=== PATIENT | male | born 1940 ===

== ENCOUNTER → 2023-05-05 06:31 | Day surgery (SDC) | payer MEDICARE, SELFPAY | LOC: GI 06:31 | PROVIDERS: ATTENDING PHYSICIAN Internal Medicine Gastroenterology | DX: Z12.11 Encounter for screening for malignant neoplasm of colon (principal); N40.2 Nodular prostate without lower urinary tract symptoms; K57.30 Diverticulosis of large intestine without perforation or abscess without bleeding; K62.89 Other specified diseases of anus and rectum; Z86.010 Personal history of colon polyps | CPT/HCPCS: 45380; 88305 ==

== ENCOUNTER → 2023-08-05 18:25 | Outpatient (REF) | payer MEDICARE, SELFPAY ==
[2023-08-05 19:19] LABS: Urine Albumin Negative (Neg - Trace); Urine Bilirubin Negative (Negative); Urine Character Clear (Clear); Urine Color Yellow; Urine Glucose Negative (Negative); Urine Ketone Negative (Negative); Urine Leukocyte Trace (Negative); Urine Nitrite Negative (Negative); Urine Occult Blood Negative (Negative); Urine Specific Gravity 1.015 (<1.030); Urine Urobilinogen Negative (Neg - 1+)
[2023-08-05 19:24] LABS: Urine Bacteria Few (Negative); Urine Squamous Cell 0-2 /LPF (Few)
== END ==
LOC: CLAB 18:25
PROVIDERS: ATTENDING PHYSICIAN Specialist
DX: R31.9 Hematuria, unspecified (principal)
CPT/HCPCS: 81003; 81015; 87086

== ENCOUNTER 2023-08-23 17:43 | Emergency (ER) | payer MEDICARE, SELFPAY ==
[2023-08-23 17:48] VITALS: BP 105/63
[2023-08-23 18:01] VITALS: BMI 27.7
[2023-08-23 18:10] LABS: % Basophils 0.3 % (0-2); % Eosinophils 0.8 % (0-6); % Immature Granulocytes 0.6 % (0-0.5); % Lymphocytes 24.8 % (20.5-51.1); % Monocytes 8.2 % (1.7-9.3); % Neutrophils 65.3 % (42.2-75.2); Absolute Eosinophils 0.1 10^3/uL (0-0.7); Absolute Lymphocytes 1.5 10^3/uL (1.2-3.4); Absolute Monocytes 0.5 10^3/uL (0.1-0.6); Absolute Neutrophils 4.1 10^3/uL (1.4-6.5); Hematocrit 40.4 % (39.0-52.0); Mean Corp Hgb Conc. 34.7 g/dL (33.0-37.0); Mean Corpuscular Hgb 33.9 pg (27.0-31.0); Mean Corpuscular Volume 97.8 fL (80.0-94.0); Mean Platelet Volume 10.8 fL (7.4-10.4); Nucleated Red Blood Cells % 0 % (-); Platelet Count 160 10^3/uL (130-400); Red Blood Cell Count 4.13 10^6/uL (4.70-6.10); Red Cell Dist. Width 12.4 % (11.5-14.5); White Blood Cell Count 6.2 10^3/uL (4.8-10.8)
[2023-08-23 18:24] LABS: ALT (SGPT) 27 U/L (0-50); AST (SGOT) 25 U/L (17-59); Albumin 4.1 g/dl (3.5-5.0); Alkaline Phosphatase 48 U/L (38-126); Blood Urea Nitrogen 25 mg/dl (9-20); Calcium 9.5 mg/dl (8.4-10.2); Carbon Dioxide 28 mmol/L (22-30); Chloride 105 mmol/L (98-107); Estimated Creatinine Clearance 54 ml/min; Glucose 133 mg/dl (70-99); Potassium 4.4 mmol/L (3.5-5.1); Sodium 141 mmol/L (135-145); Total Bilirubin 0.5 mg/dl (0.2-1.3); Total Protein 6.5 g/dl (6.3-8.2); eGFR > 60.00
[2023-08-23 19:00] VITALS: BP 118/68
[2023-08-23 19:19] VITALS: BP 120/76
[2023-08-23 19:21] VITALS: BP 131/73
--- NOTE | 2023-08-23 19:35 | ED.GENMED ---
History of Present Illness
General
Chief Complaint: Fainting/Passed Out
Source: patient
Exam Limitations: none
Time Seen by Provider: 08/23/23 18:43
Nursing documentation reviewed up to this point in time: agreed with
Travel History
Have you had any contact with someone who has COVID-19?: No
Do you have any symptoms of coronavirus? Fever > 100 degrees, chills, cough, shortness of breath, sore throat, loss of taste or smell, muscle aches, or headache?: No
History of Present Illness
History of Present Illness:
pt is a 83 y/o M
with h/o HLD
no cardiac issues
has had syncope episodes a few times in his life
has h/o BPH and just took first dose of flomax this morning
he says he weighs himself daily and normally he is between 184 and 185 and today he was 183. He believes that he is dehydrated. Patient says the last couple days he has been doing some work in his yard and he does not think he has been staying up
with his fluids. This morning he took his first dose of Flomax did not increase his water intake. This afternoon he was feeling fine and was out to lunch and had 2 glasses of wine and some snacks and while seated at the table he suddenly passed
out witnessed by family and friends. Patient said he had no warning before he passed out. Patient 'I just fell asleep'. Patient said he woke up to people trying to arouse him. He never had any shaking episodes. Patient feels otherwise well now
other than feeling a little bit dehydrated. He had no preceding chest pain, shortness of breath, abdominal pain, vomiting, headache, dizziness. 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
Past History
Past History
ED Past Medical History: Hypercholesterolemia and Other
ED Past Surgical History: Other (hernia)
Social History
Tobacco: Non-smoker
Phy Exam
Physical Exam
Physical Exam:
GENERAL: Alert , in no apparent distress
EYE: pupils equal and reactive
NECK: Supple
ENT: o/p clr, mmm.
CARDIAC: Regular rate and rhythm . No edema, no murmur
LUNGS: Clear breath sounds bilaterally, no acute respiratory distress, no wheezes/rales/rhonchi
ABDOMEN: Soft, without focal tenderness, no r/g, no cvat, normal bowel sounds
NEUROLOGICAL: Alert and oriented, no focal neuro deficits
SKIN: Warm and dry, skin intact.
MUSCULOSKELETAL: No edema, well perfused. neg matt's sign
PSYCH: Normal and appropriate interaction.
Course
Orders/Labs/Results
Orders:
Orders
08/23/23 17:47
Electrocardiogram (*1) Urgent
Reason for Study: Syncope
08/23/23 17:48
EKG- Treatment ONCE
08/23/23 18:04
CBC/With Diff [Complete Blood Count/With Diff] Urgent
Comprehensive Metabolic Panel Urgent
08/23/23 18:56
Orthostatic VS- Treatment ONCE
08/23/23 19:30
0.9% Sodium Chloride 1000 ml [Nss] 1,000 ml IV BOLUS
Abnormal Lab Results
08/23/23
18:04
RBC 4.13 L 10^6/uL
(4.70-6.10)
MCV 97.8 H fL
(80.0-94.0)
MCH 33.9 H pg
(27.0-31.0)
MPV 10.8 H fL
(7.4-10.4)
Immature Gran % 0.6 H %
(0-0.5)
BUN 25 H mg/dl
(9-20)
Glucose 133 H mg/dl
(70-99)
08/23/23 18:04
08/23/23 18:04
Vital Signs
Initial and Last Documented VS:
Initial Vital Signs
Temp Pulse Resp BP Pulse Ox
98 F 60 18 105/63 95
08/23/23 17:48 08/23/23 17:48 08/23/23 17:48 08/23/23 17:48 08/23/23 17:48
Last Documented Vital Signs
Temp Pulse Resp BP Pulse Ox
98 F 65 15 121/70 96
08/23/23 17:48 08/23/23 20:15 08/23/23 20:15 08/23/23 20:00 08/23/23 20:15
MDM/Problems Addressed
Differential Diagnosis Includes:
syncope, volume depletion, dehydration, meidcation side effect
MDM/Problems Addressed:
83-year-old male with a history of hyperlipidemia and BPH recently started Flomax today because of BPH symptoms and urinary urgency at night. He took his first dose today and thinks he was already volume depleted and then at lunch had wine and some
food and ended up passing out while he was seated. Patient says he had no warning and woke up to people nudging him. Patient says it was a brief episode and there was no shaking involved. He feels otherwise well other than feeling a little
dehydrated. He said he is syncopized a few times this way in the past but had never been on Flomax before. On exam the patient looks well, he has negative orthostatic vital signs which were checked by me, no symptoms with standing, has been normal
sinus on the heart monitor with a normal EKG and no cardiac history, no murmur. He did look a little bit dehydrated with dry mucous membranes. He was given a liter of fluid and reassessed and feels much better. He is well enough to go home and
would like to be discharged. He is going to hold on the Flomax until talking to his urologist. He was offered observation admission and declined
*Critical Care Note
Total Time (30-74mins, 75-104mins- exclusive of procedures): Not Applicable
ED Attending Note
-
Portions of this chart may have been created with voice recognition software.� Occasional wrong word or��sound alike� substitutions may have occurred due to the inherent limitations of voice recognition software.
Discharge Plan
Departure
Referrals:
Corona Akers MD [Family Provider] -
Interventions
Interventions:
*General Assessment Last Done: 08/23/23 18:01
*ED COVID-19 Vaccine History Last Done: 08/23/23 18:01
Discharge Date and Time
Print Language: CANADIAN
[2023-08-23] MEDS: NSS 1000 IV (19:47)
[2023-08-23 20:00] VITALS: BP 118/68; BP 120/76; BP 121/70; BP 131/73; PULSE 65; PULSE 68; PULSE 73
[2023-08-23 21:00] VITALS: BP 130/83
== END 2023-08-23 21:40 | disposition home or self-care (01) ==
LOC: EMR 17:43
PROVIDERS: EMERGENCY PHYSICIAN Emergency Medicine; FAMILY PHYSICIAN Internal Medicine
DX: R55 Syncope and collapse (principal); N40.1 Benign prostatic hyperplasia with lower urinary tract symptoms; R39.15 Urgency of urination; E86.0 Dehydration; E78.00 Pure hypercholesterolemia, unspecified
CPT/HCPCS: 99284; 96360; 80053; 85025; 93005